=== PATIENT | female | born 1985 | race Caucasian/White ===

== ENCOUNTER 2021-10-16 13:31 | Emergency (ER) | payer OTHER ==
[~2021-10-16] VITALS: Ht 167.6 cm; Wt 81.7 kg
[~2021-10-16 13:31] MED LIST: LEXAPRO 10 MG T10 M1; ZOFRAN ODT4 MG SUBLING
[2021-10-16 13:53] VITALS: BP 139/81
[2021-10-16] MEDS ORDERED: XANAX 0.25 MG0.25 MG PO (13:59)
[2021-10-16] MEDS ORDERED: EMGALITY120 MG/1 M SUBQ (13:59)
[2021-10-16] MEDS ORDERED: PREDNISONE 10 M10 M1 PO (14:02)
[2021-10-16] MEDS ORDERED: MAXALT MLT10 MG PO (14:03)
[2021-10-16] MEDS ORDERED: TRANSDERM-SCOP1 EACH TOP (14:03)
[2021-10-16] MEDS ORDERED: IMITREX 25 MG T25 M1 PO (14:04)
[2021-10-16] MEDS ORDERED: TOPAMAX100 MG PO (14:04)
[2021-10-16] MEDS ORDERED: VENLAFAXINE HCL75 MG PO (14:05)
[2021-10-16] MEDS ORDERED: ULTRAM 50MG TAB50 MG PO (14:05)
[2021-10-16] MEDS ORDERED: VERAPAMIL SR120 MG PO (14:06)
[2021-10-16 14:41] LABS: URINE BILIRUBIN NEGATIVE (Negative); URINE BLOOD NEGATIVE (Negative); URINE CLARITY CLEAR; URINE COLOR YELLOW; URINE GLUCOSE-RANDOM NEGATIVE (Negative); URINE KETONES NEGATIVE (Negative); URINE LEUKOCYTES-REFLEX NEGATIVE (Negative); URINE NITRITE-REFLEX NEGATIVE (Negative); URINE PROTEIN NEGATIVE (Negative); URINE SPECIFIC GRAVITY >= 1.030 (1.005-1.030); URINE UROBILINOGEN 0.2 E.U./dl (0.2-1.0)
== END 2021-10-16 16:00 | disposition home or self-care (01) ==
LOC: M.ERS 13:31
PROVIDERS: Physician Assistant
DX: K62.5 Hemorrhage of anus and rectum (principal); G43.909 Migraine, unspecified, not intractable, without status migrainosus; F17.210 Nicotine dependence, cigarettes, uncomplicated; Z79.899 Other long term (current) drug therapy; Z90.49 Acquired absence of other specified parts of digestive tract; Z88.5 Allergy status to narcotic agent; Z98.51 Tubal ligation status